=== PATIENT | male | born 1980 | race Two or more races ===

== ENCOUNTER 2017-03-30 03:52 | Day surgery (SDC) | payer SELFPAY ==
[~2017-03-30] VITALS: Ht 165.1 cm; Wt 96.5 kg
[~2017-03-30 03:52] MED LIST: AMOX1TAB61 PO; ONDA4TAB7 PO; OXYC-302 PO
[2017-03-30] MEDS ORDERED: ONDANSETRON 2MG/ML, 2ML ONE (05:42)
[2017-03-30] MEDS ORDERED: MORPHINE SULFATE 4 MG/ML, 1ML ONE (05:42)
[2017-03-30] MEDS ORDERED: SODIUM CHLORIDE 0.9% 1,000ML IVBOLUS ONE ×2 (06:00→09:30)
[2017-03-30] MEDS ORDERED: ONDANSETRON 2MG/ML, 2ML IVPush ONE (06:00)
[2017-03-30] MEDS ORDERED: SODIUM CHLORIDE FLUSH 10ML SYR IVF ONE (06:00)
[2017-03-30] MEDS ORDERED: MORPHINE SULFATE 4 MG/ML, 1ML IVPush PRN (06:00)
[2017-03-30 06:15] LABS: BLOOD UREA NITROGEN 9 mg/dL (7-18)
[2017-03-30] MEDS ORDERED: OMNIPAQUE 350 MG/ML, 100ML BOTTLE ONE (06:39)
[2017-03-30] MEDS ORDERED: LIDOCAINE 1%-EPI 1:100K, 20ML SQ ONE (07:30)
[2017-03-30] MEDS ORDERED: HYDROmorphone 1 MG/ML, 1ML IVPush PRN (07:30)
[2017-03-30] MEDS ORDERED: LIDOCAINE 1%, 20ML ONE (07:31)
[2017-03-30] MEDS ORDERED: HYDROmorphone 1 MG/ML, 1ML ONE (07:31)
[2017-03-30] MEDS ORDERED: CEFTRIAXONE PMX 1GM/50ML 50 ML ONE (09:21)
[2017-03-30] MEDS ORDERED: CEFTRIAXONE PMX 1GM/50ML 50 ML IV ONE (09:30)
[2017-03-30] MEDS ORDERED: BUPIVACAINE LIPOSOME/PF INFIL ONE (10:53)
[2017-03-30] MEDS ORDERED: MIDAZOLAM 1 MG/ML, 2ML ONE (10:55)
[2017-03-30] MEDS ORDERED: FENTANYL PF 250 MCG/5ML ONE (10:55)
[2017-03-30] MEDS ORDERED: CEFAZOLIN 1,000 MG ONE (11:20)
[2017-03-30] MEDS ORDERED: SUCCINYLCHOLINE 20 MG/ML, 10ML ONE (11:20)
[2017-03-30] MEDS ORDERED: ROCURONIUM 10 MG/ML ONE (11:20)
[2017-03-30] MEDS ORDERED: PROPOFOL 10 MG/ML, 20ML ONE (11:20)
[2017-03-30] MEDS ORDERED: METRONIDAZOLE PMX 500MG/100ML 100 ML ONE (11:23)
[2017-03-30] MEDS ORDERED: PROMETHAZINE 25 MG/ML, 1ML IV PRN (11:30)
[2017-03-30] MEDS ORDERED: MEPERIDINE/PF 25MG/0.5ML IVPush PRN (11:30)
[2017-03-30] MEDS ORDERED: LABETALOL 5MG/ML, 20ML IV PRN (11:30)
[2017-03-30] MEDS ORDERED: FENTANYL PF 100 MCG/2ML IV PRN (11:30)
[2017-03-30] MEDS ORDERED: ONDANSETRON 2MG/ML, 2ML IVPush PRN ×2 (11:30→13:30)
[2017-03-30] MEDS ORDERED: ACETAMINOPHEN 325 MG TABLET PO PRN (11:30)
[2017-03-30] MEDS ORDERED: HYDROmorphone 1 MG/ML, 1ML IV PRN (11:30)
[2017-03-30] MEDS ORDERED: OXYcodone 5 MG/5 ML ORAL.SOL UDC PO PRN ×2 (11:30→16:20)
[2017-03-30] MEDS ORDERED: OXYcodone 5 MG/5 ML ORAL.SOL UDC ONE (12:18)
[2017-03-30] MEDS ORDERED: ACETAMINOPHEN 650 MG/20.3 ML UDC ONE (12:18)
[2017-03-30] MEDS ORDERED: DIPHENHYDRAMINE 50 MG/ML, 1ML IVPush PRN (13:30)
[2017-03-30 14:41] VITALS: BP 110/71
[2017-03-30] MEDS ORDERED: OXYC-302 PO (15:47)
[2017-03-30] MEDS ORDERED: SULF1TAB24 PO (15:48)
[2017-03-30 16:40] VITALS: BP 127/79
== END 2017-03-30 17:58 | disposition home or self-care (01) ==
LOC: ED 07:24 → EDIP 10:34 → UNDOADMIN 10:34 → OR 11:50 → 4NOR 13:24 → EDIP 13:24 → 4NOR 13:29 → UNDODISIN 17:58 → OR 17:58
PROVIDERS: ATTEND Surgery
DX: K61.1 Rectal abscess (principal)
CPT/HCPCS: 36415; 46040; 72193; 76857; 80048; 81003; 82040; 85025; 93005; 96361; 96365; 96375; 99285; J0330; J0690; J0696; J1170; J2250; J2405; J2704; J3010; J7030; Q9967; C9290

== ENCOUNTER 2021-02-25 02:59 | Emergency (ER) | payer OTHER ==
[~2021-02-25] VITALS: Ht 167.6 cm; Wt 99.0 kg
[~2021-02-25 02:59] MED LIST changes: -OXYC-302 PO; +OXYC1TAB14 PO; +SULF-23 PO
[2021-02-25 03:02] VITALS: BP 134/86
--- NOTE | 2021-02-25 03:18 | NUR ---
PT STATES HE STARTED TO USE A NEW DEODORANT AND GOT ABSCESES' UNDER BILATERAL ARMPITS FROM IT A FEW DAYS AGO
[2021-02-25] MEDS ORDERED: LIDOCAINE 1%, 10ML INFIL ONE (03:30)
[2021-02-25] MEDS ORDERED: LIDOCAINE-MPF 1%, 5ML ONE (03:54)
--- NOTE | 2021-02-25 04:06 | NUR ---
I&D SET UP DONE, AND MEDS TO ROOM AND PROVIDER NOTIFIED. PT A&OX4. NO ACUTE DISTRESS.
== END 2021-02-25 05:28 | disposition home or self-care (01) ==
LOC: ED 05:00
DX: L02.412 Cutaneous abscess of left axilla (principal); L02.411 Cutaneous abscess of right axilla
CPT/HCPCS: 10061